=== PATIENT | male | born 1955 | race Caucasian/White ===

== ENCOUNTER 2024-10-02 15:09 | Emergency (ER) | payer MEDICARE, BC ==
[2024-10-02 16:02] VITALS: BP 161/74; PULSE 76
== END 2024-10-02 16:09 | disposition home or self-care (01) ==
LOC: KA.ED 15:09
DX: S92.324A Nondisplaced fracture of second metatarsal bone, right foot, initial encounter for closed fracture (principal); S92.334A Nondisplaced fracture of third metatarsal bone, right foot, initial encounter for closed fracture; Z79.899 Other long term (current) drug therapy; W20.8XXA Other cause of strike by thrown, projected or falling object, initial encounter
CPT/HCPCS: 73630-RT; 99283